=== PATIENT | male | born 1965 | race Two or more races ===

== ENCOUNTER 2018-06-24 19:21 | Inpatient (IN) | payer MEDICAID ==
[~2018-06-24] VITALS: Ht 172.7 cm; Wt 82.0 kg
--- NOTE | 2018-06-24 19:39 | NUR ---
PT SENT FROM [facility] FOR [facility] SINCE 11 AM TODAY WORSE ON EXERTION AND RELIEVED BY NITROGLYCERIN. 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 PT ON MONITOR. GIRLFRIEND AT BEDSIDE NOW.
[2018-06-24] MEDS ORDERED: FLAGYL PO (19:44)
[2018-06-24] MEDS ORDERED: CIPROFLOXACIN PO (19:44)
[2018-06-24 20:29] LABS: TROPONIN I < 0.015 ng/mL (0.000-0.045)
--- NOTE | 2018-06-24 20:40 | NUR ---
PT UPDATED ON POC AND POSSIBLE LOS IN ED DUE TO LACK OF TELE BEDS. PT STILL DENIES CP.
--- NOTE | 2018-06-24 21:00 | NUR ---
KHANH Hassan [facility] AT BEDSIDE.
[2018-06-24] MEDS: PLEASE ENTER ALLERGIES MC SCH (21:24)
[2018-06-24] MEDS ORDERED: metroNIDAZOLE 500 MG TABLET ONE (21:27)
[2018-06-24] MEDS ORDERED: CIPROFLOXACIN 500 MG TABLET ONE (21:27)
[2018-06-24] MEDS ORDERED: HEPARIN 5,000 UNITS/ML, 1ML ONE (21:27)
[2018-06-24] MEDS: CIPROFLOXACIN 500 MG TABLET PO SCH (21:30)
[2018-06-24] MEDS ORDERED: ONDANSETRON ODT 4 MG PO PRN (21:30)
[2018-06-24] MEDS ORDERED: POLYETHYLENE GLYCOL 17 GM PACKET PO PRN (21:30)
[2018-06-24] MEDS ORDERED: morphine SULFATE 10 MG/ML, 1ML IVPush PRN (21:30)
[2018-06-24] MEDS: metroNIDAZOLE 500 MG TABLET PO SCH (21:30)
[2018-06-24] MEDS: SODIUM CHLORIDE FLUSH 10ML SYR IVF SCH (21:30)
[2018-06-24] MEDS ORDERED: NITROGLYCERIN 0.4 MG BOTTLE (25 TABS) SL PRN (21:30)
[2018-06-24] MEDS ORDERED: ACETAMINOPHEN 325 MG TABLET PO PRN (21:30)
[2018-06-24] MEDS ORDERED: BISACODYL 10 MG SUPP PR PRN (21:30)
[2018-06-24] MEDS: HEPARIN 5,000 UNITS/ML, 1ML SQ SCH (21:30)
--- NOTE | 2018-06-24 21:33 | NUR ---
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
--- NOTE | 2018-06-24 22:07 | NUR ---
report received from ej hoang.
--- NOTE | 2018-06-24 23:11 | NUR ---
pt resting in [facility]. resps even and unlabored. all monitors in place. call light within reach.
--- NOTE | 2018-06-25 00:27 | NUR ---
pt sleeping in [facility]. resps even and unlabored. all monitors in place. call light within reach.
--- NOTE | 2018-06-25 03:51 | NUR ---
pt sleeping in [facility]. resps even and unlabored. all monitors in place. call light within reach.
--- NOTE | 2018-06-25 04:57 | NUR ---
pt sleeping in [facility]. resps even and unlabored. all monitors in place. call light within reach.
[2018-06-25] MEDS ORDERED: METOCLOPRAMIDE 10MG TABLET ONE (05:27)
[2018-06-25] MEDS ORDERED: DIPHENHYDRAMINE 25 MG CAPSULE ONE (05:27)
[2018-06-25 05:28] LABS: BASOPHILS # (AUTO) 0.06 x10^3/uL (0-0.1); BASOPHILS % (AUTO) 1 % (0-1); EOSINOPHILS # (AUTO) 0.42 x10^3/uL (0-0.4); EOSINOPHILS % (AUTO) 6 % (1-7); LYMPHOCYTES % (AUTO) 20 % (22-44); MD NO; MEAN CORPUSCULAR HEMOGLOBIN 27.8 pg (27.5-34.5); MEAN CORPUSCULAR HGB CONC 33.2 g/dL (33.2-36.2); MEAN CORPUSCULAR VOLUME 83.8 fL (81-97); MEAN PLATELET VOLUME 8.4 fL (7.4-10.4); MONOCYTES # (AUTO) 0.52 x10^3/uL (0.2-0.8); MONOCYTES % (AUTO) 7 % (2-9); NEUTROPHILS # (AUTO) 5.01 x10^3/uL (1.8-6.8); NEUTROPHILS % (AUTO) 67 % (42-75); PLATELET COUNT 267 x10^3/uL (130-400); RED BLOOD COUNT 5.34 x10^6/uL (4.38-5.82); RED CELL DISTRIBUTION WIDTH 13.8 % (9.4-14.8)
[2018-06-25 05:36] LABS: ALANINE AMINOTRANSFERASE 62 U/L (12-78); ALBUMIN 3.3 g/dL (3.4-5.0); ANION GAP 5 mmol/L (5-15); CALCIUM 8.6 mg/dL (8.5-10.1); CHLORIDE 107 mmol/L (98-107); CREATININE 0.89 mg/dL (0.7-1.3)
[2018-06-25 05:41] LABS: ALKALINE PHOSPHATASE 47 U/L (45-117); BILIRUBIN,TOTAL 0.5 mg/dL (0.2-1.0); CHOL/HDL RATIO 8.5; CHOLESTEROL, TOTAL 262 mg/dL (140-239); HDL CHOL % 12 % (26-37); HDL CHOLESTEROL (DIRECT) 31 mg/dL (40-60); TOTAL PROTEIN 7.1 g/dL (6.4-8.2); TRIGLYCERIDES 503 mg/dL (50-200); TROPONIN I < 0.015 ng/mL (0.000-0.045)
[2018-06-25] MEDS ORDERED: ASPIRIN 81 MG TABLET EC ONE (05:51)
[2018-06-25] MEDS ORDERED: ASPIRIN 81 MG TABLET EC PO SCH (06:00)
[2018-06-25] MEDS ORDERED: ASPIRIN 81 MG TABLET CHEW ONE (06:06)
[2018-06-25] MEDS ORDERED: NITROGLYCERIN SINGLE TAB 0.4 MG SL ONE (06:06)
--- NOTE | 2018-06-25 06:10 | NUR ---
pt medicated per emar for cp at this time. pt tolerated well. pt's aox4. resps even and unlabored. all monitors in place. call light within reach.
--- NOTE | 2018-06-25 06:37 | NUR ---
ekg done at bedside by alysia hoang.
--- NOTE | 2018-06-25 07:04 | NUR ---
report given to valarie hoang.
--- NOTE | 2018-06-25 07:04 | NUR ---
RECEIVED REPORT FROM RAMY MORALES RN. PT RESTING ON GUMIN. VSS. AWARE OF POC FOR NPO STATUS FOR STRESS TEST. PT AGREEABLE.
[2018-06-25] MEDS ORDERED: REGADENOSON 0.4 MG/5 ML SYRINGE ONE (08:51)
[2018-06-25] MEDS: SODIUM CHLORIDE FLUSH 10ML SYR IVF SCH (09:00)
[2018-06-25] MEDS ORDERED: SENNA/DOCUSATE TABLET PO SCH (09:00)
[2018-06-25] MEDS: HEPARIN 5,000 UNITS/ML, 1ML SQ SCH ×2 (09:10→14:03)
[2018-06-25] MEDS: PLEASE ENTER ALLERGIES MC SCH (09:11)
--- NOTE | 2018-06-25 09:32 | NUR ---
PT TAKEN FOR STRESS TEST IN STABLE CONDITION.
--- NOTE | 2018-06-25 10:30 | NUR ---
Break RN note: Pt in [place] for stress test.
[2018-06-25 12:56] LABS: TROPONIN I < 0.015 ng/mL (0.000-0.045)
[2018-06-25 12:58] VITALS: BP 147/97
[2018-06-25] MEDS: CIPROFLOXACIN 500 MG TABLET PO SCH (14:02)
[2018-06-25] MEDS: metroNIDAZOLE 500 MG TABLET PO SCH (14:03)
[2018-06-25] MEDS ORDERED: ATOR-2 PO (15:16)
[2018-06-25] MEDS ORDERED: ASPI81TA45 PO (15:19)
[2018-06-25] MEDS ORDERED: ATORVASTATIN 80 MG TABLET PO SCH (21:00)
== END 2018-06-25 17:02 | disposition home or self-care (01) | DRG 313 ==
LOC: ED 21:04 → EDIP 21:05 → 5SO 06-25 11:43 → DCLOUNGE 06-25 16:53
PROVIDERS: ADMIT Internal Medicine; ATTEND Internal Medicine
DX: R07.89 Other chest pain (principal); F12.90 Cannabis use, unspecified, uncomplicated; I25.2 Old myocardial infarction; R79.1 Abnormal coagulation profile; F17.200 Nicotine dependence, unspecified, uncomplicated; Z83.3 Family history of diabetes mellitus; Z95.5 Presence of coronary angioplasty implant and graft; I73.9 Peripheral vascular disease, unspecified
CPT/HCPCS: 36415; 78452; 80053; 80061; 84484; 85025; 93005; 93017; J1644; J2785; A9502; C9898

== ENCOUNTER 2020-11-03 00:37 | Inpatient (IN) | payer MEDICAID ==
[~2020-11-03] VITALS: Ht 172.7 cm; Wt 99.6 kg
[~2020-11-03 00:37] MED LIST: ASPI81TA45 PO; ATOR-2 PO; CIPROFLOXACIN PO; FLAGYL PO
[2020-11-03] MEDS ORDERED: SODIUM CHLORIDE FLUSH 10ML SYR IVF ONE (01:00)
[2020-11-03] MEDS ORDERED: PLEASE ENTER HEIGHT AND WEIGHT MC SCH (01:00)
--- NOTE | 2020-11-03 01:03 | NUR ---
PT IVELISSEA FROM [facility]. HAD GONE INTO THE ED TODAY DUE TO CHEST PAIN THAT FELT LIKE HIS PREVIOUS TN. STARTED AROUND 10 AM THIS MORNING. PT TROPONIN WAS ELEVATED AND HAS CONTINUED RISING ACCORDING TO [facility]. ENROUTE PT ON NITRO DRIP AND HEPARIN AT 12.8 UNITS, ALSO GIVEN 100MCG FENTANYL FOR PAIN DC NITRO PER ERP MARIUSZ AND CONTINUE HEPARIN. Patient is resting comfortably in bed. Bed in lowest, rails engaged, call light on lap. WCTM.
[2020-11-03] MEDS ORDERED: HEPARIN 25,000 UNITS/250ML PMX 250 ML ONE (01:16)
[2020-11-03 01:29] LABS: BASOPHILS % (AUTO) 1 % (0-1); EOSINOPHILS % (AUTO) 4 % (1-7); LYMPHOCYTES % (AUTO) 20 % (22-44); MEAN CORPUSCULAR HEMOGLOBIN 29.5 pg (27.5-34.5); MEAN CORPUSCULAR HGB CONC 34.5 g/dL (33.2-36.2); MEAN PLATELET VOLUME 8.9 fL (7.4-10.4); MONOCYTES % (AUTO) 5 % (2-9); NEUTROPHILS % (AUTO) 71 % (42-75); PLATELET COUNT 196 x10^3/uL (130-400); RED BLOOD COUNT 4.83 x10^6/uL (4.38-5.82); RED CELL DISTRIBUTION WIDTH 14.1 % (9.4-14.8)
[2020-11-03] MEDS ORDERED: HEPARIN 5,000 UNITS/ML, 1ML IV ONE (01:30)
[2020-11-03] MEDS ORDERED: HEPARIN 5,000 UNITS/ML, 1ML IV PRN (01:30)
[2020-11-03] MEDS ORDERED: HEPARIN 25,000 UNITS/250ML PMX 250 ML IV PRN (01:30)
[2020-11-03 01:31] LABS: ALBUMIN 3.3 g/dL (3.4-5.0); ANION GAP 6 mmol/L (5-15); CALCIUM 8.6 mg/dL (8.5-10.1); CHLORIDE 108 mmol/L (98-107)
[2020-11-03 01:36] LABS: ALANINE AMINOTRANSFERASE 65 U/L (12-78); ALKALINE PHOSPHATASE 74 U/L (45-117); BILIRUBIN,TOTAL 0.7 mg/dL (0.2-1.0); CREATININE 0.89 mg/dL (0.7-1.3); PROTHROMBIN TIME 10.7 Seconds (9.6-11.5); TOTAL PROTEIN 7.4 g/dL (6.4-8.2)
[2020-11-03] MEDS ORDERED: NITROGLYCERIN OINT 2%, 1GM TP ONE ×2 (02:38→03:00)
[2020-11-03] MEDS ORDERED: MORPHINE SULFATE 4 MG/ML, 1ML ONE (02:38)
[2020-11-03] MEDS ORDERED: ONDANSETRON 2MG/ML, 2ML ONE (02:38)
--- NOTE | 2020-11-03 02:47 | NUR ---
PT MEDICATED PER MAR FOR CHEST PAIN. PT NAD, APPEARS TO STILL BE IN [employer] TALKING TO RN. DENIES ADDITIONAL NEEDS OR QUESTIONS AT THIS TIME. VSS, ALISHA. AWAITING INPATIENT BED ASSIGNMENT
[2020-11-03] MEDS ORDERED: ONDANSETRON 2MG/ML, 2ML IVPush ONE ×2 (03:00→20:30)
[2020-11-03] MEDS ORDERED: MORPHINE SULFATE 4 MG/ML, 1ML IVPush PRN (03:00)
[2020-11-03 03:51] VITALS: BP 146/91
[2020-11-03] MEDS ORDERED: NITROGLYCERIN 0.4 MG/SPRAY SL PRN (04:30)
[2020-11-03] MEDS ORDERED: ASPIRIN 325 MG TABLET EC PO ONE (04:30)
[2020-11-03] MEDS ORDERED: NITROGLYCERIN 0.4 MG BOTTLE (25 TABS) SL PRN (04:30)
[2020-11-03 05:19] LABS: LDL/HDL RATIO 2.1 (0.5-3.0)
[2020-11-03] MEDS: ASPIRIN 325 MG TABLET EC PO SCH (05:49)
[2020-11-03 07:14] VITALS: BP 127/75
[2020-11-03] MEDS: SODIUM CHLORIDE FLUSH 10ML SYR IVF SCH ×2 (08:20→20:24)
[2020-11-03] MEDS: CARVEDILOL 3.125 MG TABLET PO SCH ×3 (08:20→20:24)
[2020-11-03] MEDS: FENOFIBRATE 145 MG TABLET PO SCH (12:08)
[2020-11-03 14:57] VITALS: BP 136/78
[2020-11-03] MEDS ORDERED: VERAPAMIL 2.5 MG/ML, 2ML ONE (17:26)
[2020-11-03] MEDS ORDERED: BIVALIRUDIN 250 MG ONE (17:26)
[2020-11-03] MEDS ORDERED: TICAGRELOR 90 MG TABLET ONE (17:26)
[2020-11-03] MEDS ORDERED: FENTANYL PF 100 MCG/2ML ONE ×2 (17:26→18:13)
[2020-11-03] MEDS ORDERED: LIDOCAINE-MPF 1%, 5ML ONE (17:26)
[2020-11-03] MEDS ORDERED: MIDAZOLAM 1 MG/ML, 5ML ONE (17:26)
[2020-11-03] MEDS ORDERED: hydrALAzine 20 MG/ML, 1ML ONE (17:53)
[2020-11-03] MEDS ORDERED: METOPROLOL 1 MG/ML, 5ML ONE (18:30)
[2020-11-03] MEDS ORDERED: PRASUGREL 10 MG TABLET ONE (18:44)
[2020-11-03 20:11] VITALS: BP 135/86
[2020-11-03] MEDS: ATORVASTATIN 40 MG TABLET PO SCH (20:23)
[2020-11-04 00:10] VITALS: BP 135/84
[2020-11-04 05:27] LABS: BASOPHILS % (AUTO) 1 % (0-1); EOSINOPHILS % (AUTO) 4 % (1-7); LYMPHOCYTES % (AUTO) 18 % (22-44); MEAN CORPUSCULAR HEMOGLOBIN 28.9 pg (27.5-34.5); MEAN CORPUSCULAR HGB CONC 34.3 g/dL (33.2-36.2); MEAN PLATELET VOLUME 8.8 fL (7.4-10.4); MONOCYTES % (AUTO) 5 % (2-9); NEUTROPHILS % (AUTO) 72 % (42-75); PLATELET COUNT 182 x10^3/uL (130-400); RED BLOOD COUNT 4.95 x10^6/uL (4.38-5.82); RED CELL DISTRIBUTION WIDTH 13.9 % (9.4-14.8)
[2020-11-04 05:35] LABS: ALBUMIN 2.8 g/dL (3.4-5.0); ANION GAP 7 mmol/L (5-15); CALCIUM 8.7 mg/dL (8.5-10.1); CHLORIDE 105 mmol/L (98-107)
[2020-11-04 05:44] LABS: ALANINE AMINOTRANSFERASE 61 U/L (12-78); ALKALINE PHOSPHATASE 68 U/L (45-117); BILIRUBIN,TOTAL 0.5 mg/dL (0.2-1.0)
[2020-11-04] MEDS ORDERED: ASPIRIN 325 MG TABLET EC PO SCH (06:00)
[2020-11-04] MEDS: CARVEDILOL 3.125 MG TABLET PO SCH (06:04)
[2020-11-04] MEDS: ASPIRIN 325 MG TABLET EC PO SCH (06:04)
[2020-11-04 06:05] VITALS: BP 135/77
[2020-11-04 07:31] VITALS: BP 170/99
[2020-11-04] MEDS ORDERED: hydrALAzine 20 MG/ML, 1ML IV PRN (08:00)
[2020-11-04] MEDS ORDERED: CARVEDILOL 3.125 MG TABLET PO ONE (08:00)
[2020-11-04] MEDS ORDERED: ASPIRIN 81 MG TABLET CHEW PO SCH (09:00)
[2020-11-04] MEDS: FENOFIBRATE 145 MG TABLET PO SCH (09:15)
[2020-11-04] MEDS: PRASUGREL 10 MG TABLET PO SCH (09:15)
[2020-11-04] MEDS: SODIUM CHLORIDE FLUSH 10ML SYR IVF SCH ×2 (09:17→20:33)
[2020-11-04 13:12] VITALS: BP 113/75
[2020-11-04] MEDS: CARVEDILOL 6.25 MG TABLET PO SCH (17:55)
[2020-11-04 19:17] VITALS: BP 132/86
[2020-11-04] MEDS: ATORVASTATIN 40 MG TABLET PO SCH (20:33)
[2020-11-04] MEDS ORDERED: MELATONIN 5 MG TABLET PO PRN (21:00)
[2020-11-04] MEDS ORDERED: DIPHENHYDRAMINE 25 MG CAPSULE PO PRN (23:00)
[2020-11-05 00:30] VITALS: BP 137/77
[2020-11-05] MEDS: CARVEDILOL 6.25 MG TABLET PO SCH (05:16)
[2020-11-05 05:18] VITALS: BP 138/77
[2020-11-05 06:57] VITALS: BP 134/90
[2020-11-05] MEDS: FENOFIBRATE 145 MG TABLET PO SCH (08:15)
[2020-11-05] MEDS: PRASUGREL 10 MG TABLET PO SCH (08:15)
[2020-11-05] MEDS: SODIUM CHLORIDE FLUSH 10ML SYR IVF SCH (08:16)
[2020-11-05] MEDS ORDERED: CARV3.1212 PO (08:30)
[2020-11-05] MEDS ORDERED: ASPI-963 PO (08:30)
[2020-11-05] MEDS ORDERED: NITR0.4T28 SL (08:30)
[2020-11-05] MEDS ORDERED: PRAS10TA4 PO (08:30)
[2020-11-05] MEDS ORDERED: ATOR40TA78 PO (08:30)
[2020-11-05] MEDS ORDERED: FENO145T19 PO (08:30)
[2020-11-05] MEDS ORDERED: ASPIRIN 81 MG TABLET CHEW PO SCH (09:00)
== END 2020-11-05 11:53 | disposition home or self-care (01) | DRG 174 ==
LOC: ED 00:45 → EDIP 03:07 → 5SO 03:43
PROVIDERS: ADMIT Family Medicine; ATTEND Family Medicine
PROC: 4A023N7 Measurement of Cardiac Sampling and Pressure, Left Heart, Percutaneous Approach (ICD-10-PCS; principal; 2020-11-03)
PROC: 027035Z Dilation of Coronary Artery, One Artery with Two Drug-eluting Intraluminal Devices, Percutaneous Approach (ICD-10-PCS; 2020-11-03)
PROC: B2111ZZ Fluoroscopy of Multiple Coronary Arteries using Low Osmolar Contrast (ICD-10-PCS; 2020-11-03)
PROC: B240ZZ3 Ultrasonography of Single Coronary Artery, Intravascular (ICD-10-PCS; 2020-11-03)
PROC: B2151ZZ Fluoroscopy of Left Heart using Low Osmolar Contrast (ICD-10-PCS; 2020-11-03)
DX: I21.4 Non-ST elevation (NSTEMI) myocardial infarction (principal); I47.2 Ventricular tachycardia; E66.9 Obesity, unspecified; E78.5 Hyperlipidemia, unspecified; E78.1 Pure hyperglyceridemia; F17.200 Nicotine dependence, unspecified, uncomplicated; I10 Essential (primary) hypertension; I25.10 Atherosclerotic heart disease of native coronary artery without angina pectoris; Z20.822 Contact with and (suspected) exposure to COVID-19; I25.2 Old myocardial infarction; Z68.35 Body mass index [BMI] 35.0-35.9, adult; Z82.49 Family history of ischemic heart disease and other diseases of the circulatory system; Z83.3 Family history of diabetes mellitus; I97.190 Other postprocedural cardiac functional disturbances following cardiac surgery; Y84.0 Cardiac catheterization as the cause of abnormal reaction of the patient, or of later complication, without mention of misadventure at the time of the procedure; Y92.239 Unspecified place in hospital as the place of occurrence of the external cause
CPT/HCPCS: 36415; 80053; 80061; 83036; 83880; 84484; 85025; 85520; 85610; 85730; 92978; 93005; 93306; 93356; 93458; 96374; 99156; 99157; 99291; C1753; C1769; C1894; C9600; G0378; J0583; J1644; J2250; J2405; J3010; C1725; C1874; C1887; J0360; J2270; Q0163; Q9967